=== PATIENT | female | born 1975 | race Caucasian/White ===

== ENCOUNTER → 2016-04-20 | Outpatient (CLI) | payer BC ==
[~2016-04-20] MED LIST: CHOL100027 PO; FOLI1TAB8 PO; LORA-741 PO; LXP10 PO; MRC50 PO; OMEP20CA9 PO; POLY335025 PO; RMCI IV; SENN8.6T7 PO
--- NOTE | 2016-04-20 17:00 | DIAGNOSTIC IMAGING REPORT ---
CHEST- PA OBLIQUES NO LATERLE CLINICAL HISTORY: R93.8 Abnormal chest xrayfollow-up stud dyspnea COMPARISON STUDY: Chest series dated 04/04/2016 FINDINGS: AP and oblique films of the chest with nipple markers in place to show inconsistent potential nodularity left lung base. Lungs otherwise remain clear. No evidence for cardiac enlargement. IMPRESSION: Possible nodular density left base persists. CT study of the chest is recommended to exclude artifact versus true basilar nodular pathology Electronically signed by: Mack Cesar M.D. 04/20/2016 4:59 PM
== END | disposition home or self-care (01) ==
LOC: C.RAD 16:14
PROVIDERS: ATTEND Internal Medicine
DX: R93.8 Abnormal findings on diagnostic imaging of other specified body structures (principal)

== ENCOUNTER → 2016-05-13 | Outpatient (CLI) | payer BC ==
[~2016-05-13] MED LIST changes: +FOLI1TAB7 PO; -FOLI1TAB8 PO
--- NOTE | 2016-05-13 12:38 | DIAGNOSTIC IMAGING REPORT ---
CT SCAN OF THE CHEST WITHOUT IV CONTRAST CLINICAL HISTORY: Follow-up pulmonary nodule. Smoking history. COMPARISON STUDY: Chest radiographs dated 04/04/2016. Abdominal CT dated 02/04/2014. TECHNIQUE: CT scan of the thorax was performed from the thoracic inlet to the upper abdomen. Images are reviewed in the axial, sagittal, and coronal planes. IV contrast was not administered for this examination. CT DOSE: 469.35 mGy.cm FINDINGS: Thyroid: Imaged portions of the thyroid gland are normal in size and attenuation. Thoracic aorta: The thoracic aorta is normal in caliber and demonstrates 4-vessel variant arch anatomy. The right subclavian artery arises as the fourth branch and courses posterior to the esophagus. Heart: The heart is normal in size and without pericardial effusion. Lungs and pleural spaces: There are trace pleural effusions, right slightly larger than left. No airspace consolidation is identified typical for pneumonia. No concerning pulmonary lesion is identified. The trachea and central airways are clear. Mediastinum: There is no mediastinal lymphadenopathy. Veronica: Not well assessed without IV contrast. Axillae: There is no axillary lymphadenopathy. Upper abdomen: Cholecystectomy clips are identified. Partially visualized upper abdominal viscera is otherwise within normal limits. Skeletal structures: No lytic or blastic bony lesions are seen. Hemangiomas are again seen in the bodies of T5, T7, and L1. IMPRESSION: 1. No pulmonary nodule or concerning lesion is identified. The nodular density questioned at the left lung base by x-ray could not be corroborated and was likely artifactual. 2. There are trace pleural effusions. No airspace consolidation is seen typical for pneumonia. 3. There is no mediastinal lymphadenopathy. 4. An aberrant right subclavian artery is incidentally noted. Electronically signed by: Ronaldo Guzman M.D. 05/13/2016 12:37 PM Dictated Date/Time: 05/13/2016 12:29 PM
== END | disposition home or self-care (01) ==
LOC: C.CTS 12:13
PROVIDERS: ATTEND Internal Medicine
DX: R91.1 Solitary pulmonary nodule (principal); Z87.891 Personal history of nicotine dependence

== ENCOUNTER → 2017-02-09 | Outpatient (CLI) | payer BC | END | disposition home or self-care (01) | LOC: C.PAPS 13:46 | PROVIDERS: ATTEND Obstetrics & Gynecology | DX: Z01.419 Encounter for gynecological examination (general) (routine) without abnormal findings (principal); Z11.51 Encounter for screening for human papillomavirus (HPV) ==

== ENCOUNTER → 2017-03-14 | Outpatient (CLI) | payer BC ==
[2017-03-14 10:35] LABS: BASO % 0.3 %; BASO ABS # 0.02 K/uL (0-0.2); COMPLETE YES; EOS % 0.6 %; HEMATOCRIT 42.9 % (37-47); IG% 0.3 %; LYMPH % 28.6 %; LYMPH ABS # 1.87 K/uL (1.2-3.4); MEAN CELL VOLUME 97.9 fL (80-100); MEAN CORPUSCULAR HEMOGLOBIN 32.4 pg (25-34); MEAN CORPUSCULAR HGB CONC 33.1 g/dl (32-36); MEAN PLATELET VOLUME 12.1 fL (7.4-10.4); MONO % 6.7 %; NEUT % 63.5 %; PLATELET COUNT 205 K/uL (130-400); RED BLOOD COUNT 4.38 M/uL (4.2-5.4); WHITE BLOOD COUNT 6.53 K/uL (4.8-10.8)
[2017-03-14 10:47] LABS: ALT/SGPT 54 U/L (12-78); BLOOD UREA NITROGEN 13 mg/dl (7-18); BUN/CREATININE RATIO 16.8 (10-20); C-REACTIVE PROTEIN 0.34 mg/dl (0-0.29); CARBON DIOXIDE 27 mmol/L (21-32); CHLORIDE 104 mmol/L (98-107); CREATININE 0.77 mg/dl (0.60-1.20); GLUCOSE 80 mg/dl (70-99); SODIUM 138 mmol/L (136-145)
[2017-03-14 10:50] LABS: ALB/GLOB RATIO 0.8 (0.9-2); ALKALINE PHOSPHATASE 81 U/L (45-117); AST/SGOT 34 U/L (15-37)
[2017-03-16 12:20] LABS: QUANTIF TB AG-NIL <0.00 IU/ML; QUANTIFERON NIL 0.04 IU/ML
== END | disposition home or self-care (01) ==
LOC: C.LAB1850 09:00
PROVIDERS: ATTEND Registered Nurse
DX: K50.00 Crohn's disease of small intestine without complications (principal)

== ENCOUNTER → 2017-03-14 | Outpatient (CLI) | payer BC ==
--- NOTE | 2017-03-14 15:12 | MAMMOGRAPHY REPORT ---
BILATERAL DIGITAL SCREENING MAMMOGRAM TOMOSYNTHESIS WITH CAD: 03/14/2017 CLINICAL HISTORY: Routine screening. Baseline exam. TECHNIQUE: Breast tomosynthesis in addition to standard 2D mammography was performed. Current study was also evaluated with a Computer Aided Detection (CAD) system. COMPARISON: No prior exams were available for comparison. BREAST COMPOSITION: There are scattered areas of fibroglandular density in both breasts. FINDINGS: No suspicious mass, architectural distortion or cluster of suspicious microcalcifications is seen. IMPRESSION: ACR BI-RADS CATEGORY 1: NEGATIVE There is no mammographic evidence of malignancy. A 1 year screening mammogram is recommended. The pa tient will receive written notification of the results. Approximately 10% of breast cancers are not detected with mammography. A negative mammographic report should not delay biopsy if a clinically suggestive mass is present. Heavenly Lion M.D. ay/:03/14/2017 13:55:01 [employer] Worker: Bella ALMODOVAR(Micheal)(Gómez)([place]), [facility] letter sent: Normal 1/2 BI-RADS Code: ACR BI-RADS Category 1: Negative
== END | disposition home or self-care (01) ==
LOC: C.MAMM 08:32
PROVIDERS: ATTEND Internal Medicine
DX: Z12.31 Encounter for screening mammogram for malignant neoplasm of breast (principal)

== ENCOUNTER → 2017-08-24 | Outpatient (CLI) | payer BC ==
[~2017-08-24] MED LIST changes: -FOLI1TAB7 PO; +FOLI1TAB8 PO
== END | disposition home or self-care (01) ==
LOC: C.LABBFT 15:19
PROVIDERS: ATTEND Physician Assistant Medical
DX: R39.9 Unspecified symptoms and signs involving the genitourinary system (principal)